=== PATIENT | male | born 1990 | race Caucasian/White ===

== ENCOUNTER 2019-05-05 14:07 | Outpatient (CLI) | payer OTHER ==
[2014-07-27 01:29] VITALS: BP 118/68
--- NOTE | 2019-05-10 16:04 | OP Clinic Progress Note ---
DATE OF VISIT: 05/05/2019 SUBJECTIVE: Perry White is a 29-year-old male who presented to the clinic today with his mother in the room for a painful ingrown toenail on the right great toe, inside and outside borders. He states it has been present for two months but definitely has become worse in the last month. He admits plenty of drainage and purulence. He is having pain that is waking him up at night at this point. HE ADMITS A SULFA ANTIBIOTIC ALLERGY. He denies being diabetic, and denies any sort of smoking. The patient does not admit to any fevers, chills, nausea, vomiting, shortness of breath or chest pain. OBJECTIVE: Vitals: Temperature 99.4 degrees Fahrenheit, heart rate 57, respiration rate 18, blood pressure 128/77. O2 saturation is 98% on room air. Vascular: 2+ DP and PT pulses, right foot. Capillary refill time is less than 3 seconds to the toes of the right foot. There is hair growth noted on the right foot. There is also some edema noted on the right great toe medial and lateral borders. Dermatologic: Erythema and some serous drainage and some malodor noted on the medial and lateral borders of the right great toenail. There are no other concerning skin lesions or areas of concern. There is some evidence of granulation tissue forming at the medial and lateral borders of the right great toenail where they are affected. Musculoskeletal: There is severe pain on palpation on the medial and lateral borders of the right great toenail. There are no other gross abnormalities noted. Neurologic: Light touch sensation is intact to the toes, right foot. ASSESSMENT AND PLAN: 1. Onychocryptosis right hallux, medial and lateral borders. 2. Paronychia/cellulitis, right hallux. Risks and benefits of the procedure for right hallux total nail avulsion were discussed with the patient today that include but are not limited to bleeding, infection and lack of healing of the wound and the patient agreed, both by written and verbal consent to go forward with the procedure at this time. Another option for just medial and lateral partial nail avulsions were discussed but I felt this was more appropriate to do the total nail avulsion due to the infection and the likelihood of disrupting the nail bed if we try to leave the center intact. This would likely fall off in time anyway. The patient agreed with a total nail avulsion today and allowing the nail to grow back in time. Due to the infection, we are unable to do a permanent procedure anyway. PROCEDURE #1: Right hallux total nail avulsion was performed. An alcohol swab was utilized to cleanse the base of the right great toe. An injection consisting of 1:1 mix of 2% lidocaine plain and 0.5% Marcaine plain, totaling 5 cc was injected into the base of the right great toe. At this time, anesthesia was obtained and Betadine prep was performed. Once the area was clean, a spatula was utilized to release the toenail from its surrounding attachment and the toenail was then removed with the hemostat. At this time, the site was flushed with a copious amount of normal saline. The granulation tissue was also removed with the nail splitters and silver nitrate was utilized to cauterize these areas. At this time, a copious amount of normal saline was applied to clean out the wound. The site was able to have hemostasis obtained with pressure as well as the cauterization with the silver nitrate earlier. At this time, after washing the site with a copious amount of normal saline, dressings were applied consisting of Silvadene, Adaptic, 4 x 4 gauze, 2-inch Heri and 1-inch Coban beginning on the toe and extending onto the distal forefoot. The patient tolerated the procedure well. He had no further questions. Verbal and written instructions were given to the patient for post procedure care. An antibiotic for Keflex 500 mg #21 one capsule by mouth three times daily times seven days was given to the patient to fill at a pharmacy of their choice. He is to begin using it immediately. THE PATIENT HAS AN ALLERGY TO SULFA so he should do fine with Keflex. Return to clinic in one week to make sure he is healing appropriately. We will then see him in probably two weeks after that for final followup. The patient had no further questions and we will see him in one week. Bi Bailey.P.M.(Dictated/not signed) /Accutype [id number] /mab MTDD
== END 2019-05-05 14:50 ==
LOC: POD 14:07
PROVIDERS: ATTEND Podiatrist Foot & Ankle Surgery
DX: L60.0 Ingrowing nail (principal); L03.031 Cellulitis of right toe
CPT/HCPCS: 11730; 99213

== ENCOUNTER 2019-05-12 13:56 | Outpatient (CLI) | payer OTHER ==
[2014-07-27 01:29] VITALS: BP 118/68
--- NOTE | 2019-05-17 13:57 | OP Clinic Progress Note ---
DATE OF VISIT: 05/12/2019 SUBJECTIVE: Perry White is a 29-year-old male seen in clinic today for follow up of a right hallux total nail avulsion that was performed last week on May 05. The patient had severe paronychia/cellulitis going on, on the medial and lateral borders of the right great toenail and it was encouraged that we remove the entire nail and allow it to grow in on its own again. The patient was placed on antibiotics at that time consisting of Keflex 500 mg #21 one capsule by mouth three times daily for seven days and he finished these antibiotics. The patient presents today stating that he has much less pain now and it is feeling much better. He has not done any sort of Epsom salt soak baths. He admits that he has been doing dressing changes and washing the toe, but admits to our nurse that he is not doing it all the time. He definitely is leaving the bandage on for more than a day at a time sometimes. He does not admit to any fever, chills, nausea, vomiting, shortness of breath or chest pain. OBJECTIVE: Vitals: Temperature 100.0 degrees Fahrenheit, heart rate 52, respiration rate 18, blood pressure 126/63. O2 saturation is 97% on room air. Vascular: 2+ DP and PT pulses, right foot. Capillary refill time is less than 3 seconds to the toes right foot. There is hair growth noted on the right foot. There is much less edema if not zero noted on the right great toe at this time. Dermatologic: There is still moderate erythema noted on the immediate edges of the nail bed area. There is a fair amount of cid/gomez slough in the nail bed area. Most of this was debrided down to a fairly normal looking nail bed with some slough still present, which we could not get out completely. There is no malodor noted nor purulence. Overall it does appear to still be infected slightly and there is mild drops of sweat around the toenail edge where it seems it is still little upset. Musculoskeletal: There is mild pain on palpation noted on the wound base area. There is no pain on the edges of the wound base. There are no gross abnormalities noted. Neurologic: Light touch sensation is intact to the toes, right foot. ASSESSMENT AND PLAN: 1. Post procedure follow up of a total right great toenail avulsion due to severe paronychia on the bilateral edges of the nail performed on May 05, 2019. 2. Cellulitis, right great toe. 3. The patient had a small debridement of the nail bed slough removed today with a #15 blade. The patient tolerated this well although it was tender to the patient. 4. The patient finished his antibiotics, but these were switched to Augmentin today as I believe that needs longer antibiotics as this still looks a little bit cellulitic. 5. 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 The patient is to take his antibiotics daily. He is to take the full course. The patient was encouraged to do Epsom salt soaks after washing his foot in a separate basin first before putting it in a basin with water and Epsom salts. The patient knows this will help draw out further infection. Return to clinic in one week for follow up to make sure this is healing well. If for any reason we cannot meet up next week he is to meet up the following week instead. The patient had no further questions and we will see him next week. Eve BaileyM.(Dictated/not signed) /Accutype [id number] /mab MTDBi
== END 2019-05-12 13:58 ==
LOC: POD 13:56
PROVIDERS: ATTEND Podiatrist Foot & Ankle Surgery
DX: Z48.817 Encounter for surgical aftercare following surgery on the skin and subcutaneous tissue (principal); L03.031 Cellulitis of right toe
CPT/HCPCS: 11720; 99213; A4554

== ENCOUNTER 2019-05-19 14:02 | Outpatient (CLI) | payer OTHER ==
[2014-07-27 01:29] VITALS: BP 118/68
--- NOTE | 2019-05-23 15:53 | OP Clinic Progress Note ---
DATE OF VISIT: 05/19/2019 SUBJECTIVE: Perry White is a 29-year-old male who presented to clinic today for followup of a right great toenail total nail avulsion due to paronychia and cellulitis. The patient had that procedure performed on May 05, 2019. He was seen for followup and has had continued erythema/cellulitis. He was placed on Augmentin 875/125 mg one tablet by mouth twice daily for 10 days and has a few days left since our last visit last week. The patient states that he has been picking at the wound and he presented today without it covered at all. He stated that it still has a little bit of redness around the edge of it. He denies any pain at this time, however. He does not admit to any fevers, chills, nausea, vomiting, shortness of breath or chest pain. 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 OBJECTIVE: Vitals: Temperature 99.0 degrees Fahrenheit, heart rate 69, respiration rate 18, blood pressure 122/76. O2 saturation is 98% on room air. Vascular: 2+ DP and PT pulses, right foot. Capillary refill time is less than 3 seconds to the toes of the right foot. There is hair growth noted on the toes of the right foot. There is mild edema still noted on the right great toe. Dermatologic: There is mild erythema noted around the edges of the toenail bed area. There is a [id number] amount of cid/fibrotic slough in the nail bed area. There is also some areas of the nail bed that are beginning to dry out. This was rinsed today with normal saline and gauze. The patient also has warmth noted about that right great toe and some sweating noted. The patient does not have any purulence or malodor noted. There is no fluctuance noted. Musculoskeletal: There is no pain or palpation noted at the right great toe area. There were no other gross abnormalities noted. Neurologic: Light touch sensation is intact to the toes, right foot. ASSESSMENT AND PLAN: 1. Postprocedure followup of right great toe total nail avulsion performed on May 05, 2019. 2. Cellulitis right great toe - improving, not resolved yet. The patient had the right great toenail bed rinsed and cleansed today with normal saline and gauze. Triple Antibiotic Ointment and a Band-Aid were applied. I notified the patient that we really need to do our best to not touch the wound and to keep it covered with antibiotic ointment and a Band-Aid daily. He was also encouraged to be doing Epsom salt soaks daily. The patient was informed that I need to keep in mind the possibility of osteomyelitis in the right great toe as the infection was so severe when he first saw me. If this is continuing to stay red despite good wound care and leaving the nail bed alone at home, then we will need to consider x-rays and subsequent imaging to see if there is infection in the bone. The patient understands that we will need to consider that in the future if it is not improving. Return to clinic in two weeks for followup. The patient is to notify [facility] if there are any concerns before that time and we will see if we need to add any sort of different antibiotics. In the meantime, he is to finish the three days of antibiotics he has left as it looks much better. If it worsens, then he is to call [facility] and we will get him in with another provider and get him taken care of this as soon as possible. The patient has no further questions or concerns and we will see him in two weeks. Eve BaileyM.(Dictated/not signed) /Accutype [id number] /mab MTDD
== END 2019-05-19 14:32 ==
LOC: POD 14:02
PROVIDERS: ATTEND Podiatrist Foot & Ankle Surgery
DX: Z48.817 Encounter for surgical aftercare following surgery on the skin and subcutaneous tissue (principal); L03.115 Cellulitis of right lower limb
CPT/HCPCS: 99213

== ENCOUNTER 2019-06-02 10:01 | Outpatient (CLI) | payer OTHER ==
[2014-07-27 01:29] VITALS: BP 118/68
--- NOTE | 2019-06-08 11:14 | OP Clinic Progress Note ---
DATE OF VISIT: 06/02/2019 SUBJECTIVE: Perry White is a 29-year-old male presenting to the clinic today for followup of a right great toenail total nail avulsion that had paronychia and cellulitis previously. The patient had that procedure performed on May 05, 2019. He was placed on antibiotics and he finished those antibiotics and he is looking much better at this time. He denies any pain in the toe and states that he thinks the toenail is beginning to grow back in again. He is curious about the permanent procedure in case it is needed in the future and that was discussed today as well. He does not admit to any fevers, chills, nausea, vomiting, shortness of breath or chest pain. OBJECTIVE: Vitals: Temperature 99.0 degrees Fahrenheit, heart rate 65, respiration rate 18, blood pressure 139/73. O2 saturation is 98% on room air. Vascular: 2+ DP and PT pulses, right foot. Capillary refill time is less than 3 seconds to the toes of the right foot. There is hair growth to the toes, right foot. There is no edema noted, right great toe. Dermatologic: There is no significant erythema or warmth noted about the right great toe anymore. There is a small amount of toenail beginning to extend out from the eponychium. There is a very small amount of a dried stable cid eschar essentially in the nail bed area distal to the toenail that is growing out. Overall, it appears to have healed beautifully. There is no drainage or raw tissue at all. There are no signs of infection noted. Musculoskeletal: There is no pain on palpation noted at the right great toe area at this time. There are no other gross abnormalities noted. Neurologic: Light touch sensation is intact to the toes, right foot. ASSESSMENT AND PLAN: 1. Post procedure care after right great toe total nail avulsion that was performed on May 05, 2019. 2. Cellulitis, right great toe - resolved. There were no procedures performed on this patient today. We encouraged the patient to continue a dry Band-aid to the right great toe site for one more week and then he does not need it anymore. The patient has healed beautifully since his last visit. We discussed a permanent procedure and the importance of doing a permanent procedure as soon as any pain returns to the medial or lateral side of the toe and before any infection begins. If this does occur we will consider doing that at another visit at a future date. The patient has no further questions or concerns. I believe that there is less concern for any sort of osteomyelitis as the patient has no pain and is healing beautifully and has no significant erythema or signs of infection. The patient will return to the clinic as needed in the future. Bi Bailey.P.M.(Dictated/not signed) /Accutype [id number] /mab MTDD
== END 2019-06-02 10:32 ==
LOC: POD 10:01
PROVIDERS: ATTEND Podiatrist Foot & Ankle Surgery
DX: Z48.817 Encounter for surgical aftercare following surgery on the skin and subcutaneous tissue (principal)
CPT/HCPCS: 99212